=== PATIENT | female | born 1945 | race Caucasian/White ===

== ENCOUNTER 2016-12-23 00:14 | Day surgery (SDC) | payer MEDICARE ==
[~2016-12-23] VITALS: Ht 165.1 cm; Wt 84.4 kg
[2016-12-23] VITALS (10 sets, daily range): BP systolic 111–143; BP diastolic 51–68; PULSE 60–67; RESP 13–19; O2SAT 90–97
[~2016-12-23 00:14] MED LIST: AMIO100T4 PO; CARV25TA2 PO; DICL100G26 TOPICAL; DIGO125T73 PO; FURO-128 PO; HYDR-4003 PO; LISI-571 PO; METF850T2 PO; NITR0.4T6 SL; WARF5TAB7 PO; ZLP5T PO
[2016-12-23 07:31] LABS: BASOPHILS % (AUTO) 0.5 % (0-3); EOSINOPHILS % (AUTO) 3.1 % (0-5); MONOCYTES % (AUTO) 10.7 % (4-12); Mean Corpuscular Hemoglobin 31.9 pg (27.0-35.0); Mean Corpuscular Volume 99.5 fL (81-100); NEUTROPHILS % (AUTO) 51.9 % (40-74); Platelet Count 207 bil/L (150-400)
[2016-12-23 07:51] LABS: INR 1.2 ratio
--- NOTE | 2016-12-23 07:56 | NUR ---
Patient admitted for heart cath with Dr Rivera. She reports that she is currently on augmentin for pneumonia and urinary tract infection. Patient states that Dr Rivera is aware of her infection, will confirm that with physician.She is a right mastectomy patient so both iv's placed in left arm.
[2016-12-23] MEDS ORDERED: Heparin 1,000 Units/500 mL NS Premix IV ONE (08:38)
[2016-12-23] MEDS ORDERED: Heparin 10,000 Unit/1,000 mL NS Premix IV ONE (08:38)
[2016-12-23] MEDS ORDERED: Nitroglycerin 50,000 mcg/250 mL D5W Premix IV ONE (08:38)
[2016-12-23] MEDS ORDERED: Verapamil 2.5 mg/mL 2 mL Inj ONE (08:38)
[2016-12-23] MEDS ORDERED: Heparin 1,000 Unit/mL 10 mL Inj ONE (08:38)
[2016-12-23] MEDS ORDERED: fentaNYL-PF 50 mCg/mL 2 mL Inj ONE (08:48)
[2016-12-23] MEDS ORDERED: Bupivacaine-MPF 0.5% 30 mL Inj ONE (09:01)
--- NOTE | 2016-12-23 09:51 | CS94 ---
[address] [address] DIAGNOSTIC CARDIAC CATHETERIZATION PATIENT: VINCE HASSAN : 1945 MR#: [id number] ADMIT: 12/23/2016 JOB ID: [id number] SERVICE DATE: 12/23/2016 PROCEDURES: 1. Selective right and left coronary angiography. 2. Left heart catheterization. INDICATION: Cardiomyopathy. PROCEDURAL DETAILS: The reader and the coders are referred to the procedure log. Briefly 5-Turkish system, right radial approach. ANGIOGRAPHIC FINDINGS: 1. Left main short. No significant disease. 2. Mild proximal ectasia of the LAD is noted. The vessel past the second major diagonal has mild diffuse disease of about 20%. 3. Circumflex is a moderate caliber vessel. It is nondominant. It has an ostial 30% lesion. 4. Right coronary artery is dominant. It is a large caliber vessel. It is free of any significant disease. 5. Left heart catheterization revealed severe LV dysfunction. The apical anterolateral segment seems to squeeze the best. The EF is estimated to be around 25%. LVEDP was 7-8 and there was no gradient upon pullback. In summary, nonischemic cardiomyopathy, continue medical therapy.
--- NOTE | 2016-12-23 10:04 | NUR ---
Received Received from molder labels at 0945. VSS except SPO2 88-91% on RA dozing. O2 placed at 2l and SPO2 92-94%. States insertion site pain 5/10 but, "It doesn't hurt that bad." TR band intact to right wrist. No bleeding or hematoma. Denies numbness or tingling. IVF infusing per protocol. Tele 100% paced. Taking po fluids well. Continue to monitor per orders.
[2016-12-23] MEDS ORDERED: AMOX-366 PO (12:06)
--- NOTE | 2016-12-23 12:57 | NUR ---
discharge instructions reviewed with patient.
--- NOTE | 2016-12-23 13:22 | NUR ---
Patient may be discharged now, however Dr Rivera has not spoken to her about the cath results from today, he informs me that he will arrive in approx 20minutes to see patient, she is agreeable to wait.Right radial site without bleeding or hematoma.
== END 2016-12-23 23:59 | disposition home or self-care (01) ==
LOC: SOUO 00:14
PROVIDERS: ATTEND Internal Medicine Cardiovascular Disease
DX: I42.9 Cardiomyopathy, unspecified (principal); I48.0 Paroxysmal atrial fibrillation; I44.7 Left bundle-branch block, unspecified; I50.22 Chronic systolic (congestive) heart failure; E11.9 Type 2 diabetes mellitus without complications; I10 Essential (primary) hypertension; E78.5 Hyperlipidemia, unspecified; Z79.84 Long term (current) use of oral hypoglycemic drugs; Z79.01 Long term (current) use of anticoagulants; Z85.3 Personal history of malignant neoplasm of breast; Z95.810 Presence of automatic (implantable) cardiac defibrillator
CPT/HCPCS: 36415; 80048; 85025; 85610; 93005; 93458; 99152; 99153; C1769; C1887; C1894; J1644; J2250; J3010; J7030; Q9967